=== PATIENT | female | born 1965 | race Caucasian/White ===

== ENCOUNTER 2016-09-22 03:08 | Emergency (ER) | payer OTHER ==
--- NOTE | 2016-09-22 04:05 | ED NURSING NOTES ---
Clinical Report - Nurses [facility] [address] [place] [address] 09/22/2016 3:09 Patient: JOSE ENRIQUE LINDSAY TRIAGE Triage time 0320. Acuity: LEVEL 3. Chief Complaint: SKIN LESION and TENDER AREA. --03:27 Sanju Mccormack R.N. 03:19 09/22/16. BP: 167/77. HR: 88. RR: 17. O2 saturation: 98%. Temp: 97.6 F. --03: Sanju Mccormack R.N. 03:27 09/22/16. Pain level now 0/10. --03:27 Sanju Mccormack R.N. Weight: 86.1 kg stated. Height/Length: 67 inches Per Patient. BMI: 29.8. --03:27 Sanju Mccormack R.N. Medications None. --03:22 Sanju Mccormack R.N. Allergies Codeine. Definite(nausea) Penicillins. Definite Moderate(nausea) --03:21 Sanju Mccormack R.N. History Arrived by private vehicle. Historian: patient. Accompanied by friend. Reported as located in the right axilla. Onset. (1 1/2 weeks ago). ( red indurated areas under the arm). 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 SOCIAL HX: Heavy tobacco smoker- 1 pack per day. History of drug use: heroin. (about 8 hours ago). The patient was exposed to MRSA. FALL RISK ASSESSMENT: Fall risk assessment completed. No fall risk identified. NUTRITIONAL RISK ASSESSMENT: The nutritional risk assessment revealed no deficiencies. FUNCTIONAL ASSESSMENT: Functional assessment: no impairments noted. LEARNING NEEDS ASSESSMENT: The learning needs assessment revealed no barriers. SKIN INTEGRITY ASSESSMENT: Skin integrity risk assessment completed. No skin integrity risk identified. --03:27 Sanju Mccormack R.N. PROBLEMS: Lifestyle / Substance Problems. Immunizations. LNMP - Last Normal Menstrual Period. Hepatitis. Depression. Anxiety disorder. Abscess. Tetanus Status. Cellulitis. --03:21 Sanju Mccormack R.N. ADDITIONAL SURGERIES: Bladder Suspension. . Foot. Tubal Ligation. --03:21 Sanju Mccormack R.N. Interventions ID band on patient. --03:27 Sanju Mccormack R.N. PHYSICAL ASSESSMENT GENERAL / NEURO / PSYCH: Alert. The patient does not appear to be in acute distress. Oriented X 4. HEENT: Pupils equal, round and reactive to light. Mucous membranes are pink. RESPIRATORY: Respirations not labored. Breath sounds within normal limits. CVS: Capillary refill less than 2 seconds. Pulses within normal limits. GI / : Abdomen nontender. SKIN: Skin is intact, warm, dry and non-tender. Multiple papules with erythema in the right axilla. Normal skin turgor. No skin rash. --03:28 Sanju Mccormack R.N. NURSING PROGRESS NOTES Patient gowned. Head of bed elevated. Reassurance given. Patient identifiers checked. Call light placed in reach. Bed placed in lowest position. Brakes of bed on. --03:28 Sanju Mccormack R.N. right 5th digit splinted with metal foam by lead injection mold technician. --04:26 Malorie Fleming R.N. DISPOSITION / DISCHARGE Departure time: 8. Condition at departure: unchanged. No learning barriers present. Discharge instructions provided and reviewed with the patient. Reviewed medication(s). Prescription(s) given to the patient (Bactrim DS). Patient verbalized understanding. Written instructions provided in Mexican. The patient was discharged by the physician. She was discharged home and accompanied by medicare compliance auditor. She left the Emergency Department ambulatory and via private vehicle. [employer] District Sales Manager driving. Medication list reviewed and validated with the patient. --04:27 Malorie Fleming R.N. 04:18 09/22/16. BP: deferred. HR: deferred. RR: deferred. O2 saturation: deferred. Temp: deferred. Pain level now deferred. --04:27 Malorie Fleming R.N. Locked/Released at 09/22/2016 4:28 by Malorie Fleming R.N.
--- NOTE | 2016-09-22 04:05 | ED CLINICAL REPORT ---
Clinical Report - Physicians/Mid Levels [facility] [address] [address] 09/22/2016 3:09 [id number] Time Seen: 03:17 Sep 22 2016. Arrived- By private vehicle. Historian- patient. CPT: ER phys charges level 3 (#[id number]). HISTORY OF PRESENT ILLNESS Chief Complaint: LESION. 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 It is described as painful. It has been located in the right axilla. A possible cause has been identified (shaving). Similar symptoms previously: None. Recent medical care: Not recently seen/assessed. REVIEW OF SYSTEMS No fever, chills, sore throat, cough or difficulty breathing. No hoarseness, chest pain, abdominal pain, nausea or diarrhea. No joint pain. She has had enlarged lymph nodes. PAST HISTORY Hepatitis. Depression. Anxiety disorder.. Surgeries: (Bladder Suspension. . Foot. Tubal Ligation.). Medications: None. Allergies: Codeine. Definite(nausea) Penicillins. Definite Moderate(nausea). SOCIAL HISTORY Heavy tobacco smoker (cigarette)- less than 1 pack per day. History of drug use: heroin. No alcohol use. ADDITIONAL NOTES The nursing notes have been reviewed. PHYSICAL EXAM Vital Signs: 09/22/2016 03:19 BP: 167/77. HR: 88. RR: 17. O2 saturation: 98%. Temp: 97.6 F. Appearance: Alert. No acute distress. Eyes: Conjunctivae and eyelids normal. ENT: Pharynx normal. Neck: Neck supple. CVS: Normal heart rate and rhythm. Heart sounds normal. Respiratory: No respiratory distress. Skin: Skin warm. Normal skin color. (Multiple small, tender erythematous papules in the right axilla consistent with early hidradenitis). Extremities: (Tender , swollen and ecchymotic right fifth finger at the PIP. ( pt recently bumped it but it has been chronically swollen for several months. )). Neuro: Oriented X 3. No motor deficit. No sensory deficit. LABS, X-RAYS, AND EKG Rt UE Digits X-ray: (Prior frcture at the PIP with arthritic changes.). Views: AP, lateral and oblique. Technique: good. The X-rays were independently viewed by me and interpreted contemporaneously by me. PROGRESS AND PROCEDURES Course of Care: Pt notes she injured her finger in the past and did not have it looked at. Patient/family counseled. Disposition: Discharged. Condition: stable. CLINICAL IMPRESSION Hidradenitis suppurativa (right axilla). Chronic swelling right small finger due to prior injury. INSTRUCTIONS Apply moist heat for 15-20 minutes three times a day for one weeks until better. Warnings: Further evaluation is necessary. GENERAL WARNINGS: Return or contact your physician immediately if your condition worsens or changes unexpectedly, if not improving as expected, or if other problems arise. Prescription Medications: Bactrim DS 800 mg / 160 mg: Take 1 tablet orally every 12 hours for 7 days. Dispense fourteen (14). No refills. Substitution is permissible. Understanding of the discharge instructions verbalized by patient. Follow-up with: [facility], , , [address], , [place], [address] Follow up in one week. Call for the next available appointment. (Electronically signed by Moe Fitch MD 09/24/2016 12:52)
--- NOTE | 2016-09-22 04:05 | ED NURSING NOTES ---
Clinical Report - Nurses [facility] [address] [place] [address] 09/22/2016 3:09 Patient: JOSE ENRIQUE LINDSAY TRIAGE Triage time 0320. Acuity: LEVEL 3. Chief Complaint: SKIN LESION and TENDER AREA. --03:27 Sanju Mccormack R.N. 03:19 09/22/16. BP: 167/77. HR: 88. RR: 17. O2 saturation: 98%. Temp: 97.6 F. --03: Sanju Mccormack R.N. 03:27 09/22/16. Pain level now 0/10. --03:27 Sanju Mccormack R.N. Weight: 86.1 kg stated. Height/Length: 67 inches Per Patient. BMI: 29.8. --03:27 Sanju Mccormack R.N. Medications None. --03:22 Sanju Mccormack R.N. Allergies Codeine. Definite(nausea) Penicillins. Definite Moderate(nausea) --03:21 Sanju Mccormack R.N. History Arrived by private vehicle. Historian: patient. Accompanied by friend. Reported as located in the right axilla. Onset. (1 1/2 weeks ago). ( red indurated areas under the arm). 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 SOCIAL HX: Heavy tobacco smoker- 1 pack per day. History of drug use: heroin. (about 8 hours ago). The patient was exposed to MRSA. FALL RISK ASSESSMENT: Fall risk assessment completed. No fall risk identified. NUTRITIONAL RISK ASSESSMENT: The nutritional risk assessment revealed no deficiencies. FUNCTIONAL ASSESSMENT: Functional assessment: no impairments noted. LEARNING NEEDS ASSESSMENT: The learning needs assessment revealed no barriers. SKIN INTEGRITY ASSESSMENT: Skin integrity risk assessment completed. No skin integrity risk identified. --03:27 Sanju Mccormack R.N. PROBLEMS: Lifestyle / Substance Problems. Immunizations. LNMP - Last Normal Menstrual Period. Hepatitis. Depression. Anxiety disorder. Abscess. Tetanus Status. Cellulitis. --03:21 Sanju Mccormack R.N. ADDITIONAL SURGERIES: Bladder Suspension. . Foot. Tubal Ligation. --03:21 Sanju Mccormack R.N. Interventions ID band on patient. --03:27 Sanju Mccormack R.N. PHYSICAL ASSESSMENT GENERAL / NEURO / PSYCH: Alert. The patient does not appear to be in acute distress. Oriented X 4. HEENT: Pupils equal, round and reactive to light. Mucous membranes are pink. RESPIRATORY: Respirations not labored. Breath sounds within normal limits. CVS: Capillary refill less than 2 seconds. Pulses within normal limits. GI / : Abdomen nontender. SKIN: Skin is intact, warm, dry and non-tender. Multiple papules with erythema in the right axilla. Normal skin turgor. No skin rash. --03:28 Sanju Mccormack R.N. NURSING PROGRESS NOTES Patient gowned. Head of bed elevated. Reassurance given. Patient identifiers checked. Call light placed in reach. Bed placed in lowest position. Brakes of bed on. --03:28 Sanuj Mccormack R.N. right 5th digit splinted with metal foam by installer technician. --04:26 Malorie Fleming R.N. DISPOSITION / DISCHARGE Departure time: 8. Condition at departure: unchanged. No learning barriers present. Discharge instructions provided and reviewed with the patient. Reviewed medication(s). Prescription(s) given to the patient (Bactrim DS). Patient verbalized understanding. Written instructions provided in [place]an. The patient was discharged by the physician. She was discharged home and accompanied by cardiac cath lab manager. She left the Emergency Department ambulatory and via private vehicle. Home Teaching Grades 9 Thru 12 Teacher driving. Medication list reviewed and validated with the patient. --04:27 Malorie Fleming R.N. 04:18 09/22/16. BP: deferred. HR: deferred. RR: deferred. O2 saturation: deferred. Temp: deferred. Pain level now deferred. --04:27 Malorie Fleming R.N. Locked/Released at 09/22/2016 4:28 by Malorie Fleming R.N.
--- NOTE | 2016-09-22 04:05 | ED ORDER SUMMARY ---
..... Patient: JOSE ENRIQUE LINDSAY OrderSheet [facility] VisitID: [id number] [address] [address] 51y, F Registration Date/Time: 09/22/2016 ORDER SHEET Weight: 86.1 kg (stated) Allergies: Codeine, Penicillins GENERAL ORDERS: Finger Right (5) Urgent (03:37 09/22/2016 Rommel JAIME) (Ack 3:39 LMuller) (4:03 LMuller) Splint (UE) (Right) (Metal / foam) (04:04 09/22/2016 Rommel JAIME) (4:25 HKharjit R.N.) MEDICATION ORDERS: IV FLUIDS: ORDER SHEET NOTES: [Electronically signed by Malorie Fleming R.N. (04:28 09/22/2016)] [Electronically signed by Moe Fitch MD (12:52 09/24/2016)] [Electronically locked/signed by Malorie Fleming R.N. (04:28 09/22/2016)]
--- NOTE | 2016-09-22 04:05 | ED ORDER SUMMARY ---
..... Patient: JOSE ENRIQUE LINDSAY OrderSheet [facility] VisitID: [id number] [address] [address] 51y, F Registration Date/Time: 09/22/2016 ORDER SHEET Weight: 86.1 kg (stated) Allergies: Codeine, Penicillins GENERAL ORDERS: Finger Right (5) Urgent (03:37 09/22/2016 Rommel JAIME) (Ack 3:39 LMuller) (4:03 LMuller) Splint (UE) (Right) (Metal / foam) (04:04 09/22/2016 Rommel JAIME) (4:25 HKharjit R.N.) MEDICATION ORDERS: IV FLUIDS: ORDER SHEET NOTES: [Electronically signed by Malorie Fleming R.N. (04:28 09/22/2016)] [Electronically signed by Moe Fitch MD (12:52 09/24/2016)] [Electronically locked/signed by Malorie Fleming R.N. (04:28 09/22/2016)]
--- NOTE | 2016-09-22 04:05 | ED CLINICAL REPORT ---
Clinical Report - Physicians/Mid Levels [facility] [address] [place] [address] 09/22/2016 3:09 [id number] Time Seen: 03:17 Sep 22 2016. Arrived- By private vehicle. Historian- patient. CPT: ER phys charges level 3 (#[id number]). HISTORY OF PRESENT ILLNESS Chief Complaint: LESION. 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 It is described as painful. It has been located in the right axilla. A possible cause has been identified (shaving). Similar symptoms previously: None. Recent medical care: Not recently seen/assessed. REVIEW OF SYSTEMS No fever, chills, sore throat, cough or difficulty breathing. No hoarseness, chest pain, abdominal pain, nausea or diarrhea. No joint pain. She has had enlarged lymph nodes. PAST HISTORY Hepatitis. Depression. Anxiety disorder.. Surgeries: (Bladder Suspension. . Foot. Tubal Ligation.). Medications: None. Allergies: Codeine. Definite(nausea) Penicillins. Definite Moderate(nausea). SOCIAL HISTORY Heavy tobacco smoker (cigarette)- less than 1 pack per day. History of drug use: heroin. No alcohol use. ADDITIONAL NOTES The nursing notes have been reviewed. PHYSICAL EXAM Vital Signs: 09/22/2016 03:19 BP: 167/77. HR: 88. RR: 17. O2 saturation: 98%. Temp: 97.6 F. Appearance: Alert. No acute distress. Eyes: Conjunctivae and eyelids normal. ENT: Pharynx normal. Neck: Neck supple. CVS: Normal heart rate and rhythm. Heart sounds normal. Respiratory: No respiratory distress. Skin: Skin warm. Normal skin color. (Multiple small, tender erythematous papules in the right axilla consistent with early hidradenitis). Extremities: (Tender , swollen and ecchymotic right fifth finger at the PIP. ( pt recently bumped it but it has been chronically swollen for several months. )). Neuro: Oriented X 3. No motor deficit. No sensory deficit. LABS, X-RAYS, AND EKG Rt UE Digits X-ray: (Prior frcture at the PIP with arthritic changes.). Views: AP, lateral and oblique. Technique: good. The X-rays were independently viewed by me and interpreted contemporaneously by me. PROGRESS AND PROCEDURES Course of Care: Pt notes she injured her finger in the past and did not have it looked at. Patient/family counseled. Disposition: Discharged. Condition: stable. CLINICAL IMPRESSION Hidradenitis suppurativa (right axilla). Chronic swelling right small finger due to prior injury. INSTRUCTIONS Apply moist heat for 15-20 minutes three times a day for one weeks until better. Warnings: Further evaluation is necessary. GENERAL WARNINGS: Return or contact your physician immediately if your condition worsens or changes unexpectedly, if not improving as expected, or if other problems arise. Prescription Medications: Bactrim DS 800 mg / 160 mg: Take 1 tablet orally every 12 hours for 7 days. Dispense fourteen (14). No refills. Substitution is permissible. Understanding of the discharge instructions verbalized by patient. Follow-up with: [facility], , , [address], , [place], [address] Follow up in one week. Call for the next available appointment. (Electronically signed by Moe Fitch MD 09/24/2016 12:52)
--- NOTE | 2016-09-22 07:00 | DIAGNOSTIC IMAGING REPORT ---
PROCEDURE: XR FINGER - RIGHT INDICATION: TRAUMA/INJURY, initial encounter TECHNIQUE: A P hand and two views of the right fifth digit. COMPARISON: None. FINDINGS: Soft tissue swelling around the PIP joint. No foreign body, fracture or dislocation. Moderate degenerative changes of the PIP and DIP joints. IMPRESSION: 1. Soft tissue swelling but no fracture 2. Osteoarthritic changes
--- NOTE | 2016-09-24 12:53 | ED MED RECONCILIATION SUMMARY ---
Patient: JOSE ENRIQUE LINDSAY Medication Reconciliation Report [facility] VisitID: [id number] [address] [address] 51y, F Registration Date/Time: 09/22/2016 Weight: 86.1 kg Height/Length: 67 in. BMI: 29.8 ALLERGIES: Codeine, Penicillins The patient's Home Medications are listed below: NONE. The source(s) of the original Home Medication information: Not obtained. The following Medications were given to the patient in the Emergency Department: None. The following Medications were prescribed to the patient: Bactrim DS 800 mg / 160 mg: Take 1 tablet orally every 12 hours for 7 days. Dispense fourteen (14). No refills. Substitution is permissible. -- Moe Fitch MD
--- NOTE | 2016-09-24 12:53 | ED MED RECONCILIATION SUMMARY ---
Patient: JOSE ENRIQUE LINDSAY Medication Reconciliation Report [facility] VisitID: [id number] [address] [address] 51y, F Registration Date/Time: 09/22/2016 Weight: 86.1 kg Height/Length: 67 in. BMI: 29.8 ALLERGIES: Codeine, Penicillins The patient's Home Medications are listed below: NONE. The source(s) of the original Home Medication information: Not obtained. The following Medications were given to the patient in the Emergency Department: None. The following Medications were prescribed to the patient: Bactrim DS 800 mg / 160 mg: Take 1 tablet orally every 12 hours for 7 days. Dispense fourteen (14). No refills. Substitution is permissible. -- Moe Fitch MD
--- NOTE | 2016-09-24 12:53 | ED MAR SUMMARY ---
..... Medication Administration Record [facility] [address], [place] [id number] Patient: JOSE ENRIQUE LINDSAY Visit ID: [id number] 51y, F Weight: 86.1 kg Height/Length: 67 in BMI: 29.8 ALLERGIES: Codeine, Penicillins
--- NOTE | 2016-09-24 12:53 | ED DISCHARGE INSTRUCTIONS ---
Patient: JOSE ENRIQUE LINDSAY General Instructions [facility] VisitID: [id number] [address] [place] [address] 51y, F Registration Date/Time: 09/22/2016 Hidradenitis suppurativa (right axilla). Chronic swelling right small finger due to prior injury. INSTRUCTIONS Apply moist heat for 15-20 minutes three times a day for one weeks until better. Warnings: Further evaluation is necessary. GENERAL WARNINGS: Return or contact your physician immediately if your condition worsens or changes unexpectedly, if not improving as expected, or if other problems arise. Prescription Medications: Bactrim DS 800 mg / 160 mg: Take 1 tablet orally every 12 hours for 7 days. Dispense fourteen (14). No refills. Substitution is permissible. Understanding of the discharge instructions verbalized by patient. Follow-up with: [facility], , , [address], , [place], [address] Follow up in one week. Call for the next available appointment. ADDITIONAL INFORMATION Hidradenitis Suppurativa (Abx Only) Hidradenitis suppurativa is chronic inflammation of the sweat glands. It is considered a severe form of acne. Firm, red, painful bumps called nodules form. These are filled with pus. They often enlarge and may break open and drain. Common affected areas are the armpit, groin, and anal area. You have been prescribed antibiotics and anti-inflammatory medications to help treat the flare-up. If nodules continue to enlarge, drainage may be needed. Surgical removal of the glands is the most effective treatment in severe cases. Watch for the signs of early inflammation in the future (small, tenderlumps) and follow the treatment advice below. Home care The following guidelines will help you care for your inflammation at home: If oral antibiotics were prescribed, take all of them as directed. Make a warm compress by running hot water over a facecloth. Apply it to the area until the compress cools off. Repeat over a 15-minute period. Apply the hot compress 3 times a day for the first3 days. As an alternative, wheel grinder the shower and direct the warm spray onto the area. Wash the area with antibacterial soap. Apply an [id number] antibiotic cream 3 to 4 times a day, unless another topical medication was prescribed Use ibuprofen to control pain and swelling, unless another pain medication was prescribed. If you have kidney disease or ever had a stomach ulcer or GI bleeding, talk with your doctor before using this medication. Prevention The following can help prevent hidradenitis suppurativa: Avoid heat and sweating as much as possible. Wear loose clothing. Avoid shaving the affected area. Lose excess weight. If you smoke, consider quitting. Avoiding antiperspirants and deodorants may help. Follow-up care Follow up with your health care provider if symptoms are not improving over the next five days, or as advised by our staff. When to seek medical care Get prompt medical attention if any of the following occur: Increasing redness Increasing pain Fever over 100.4F (38C) for more than 2 days aftertreatment, or as directed Nodules continue to get larger You have been given the following additional information: Hidradenitis Suppurativa, Abx (Electronically signed by Moe Fitch MD 09/24/2016 12:52)
--- NOTE | 2016-09-24 12:53 | ED MAR SUMMARY ---
..... Medication Administration Record [facility] [address], [place] [id number] Patient: JOSE ENRIQUE LINDSAY Visit ID: [id number] 51y, F Weight: 86.1 kg Height/Length: 67 in BMI: 29.8 ALLERGIES: Codeine, Penicillins
--- NOTE | 2016-09-24 12:53 | ED DISCHARGE INSTRUCTIONS ---
Patient: JOSE ENRIQUE LINDSAY General Instructions [facility] VisitID: [id number] [address] [place] [address] 51y, F Registration Date/Time: 09/22/2016 Hidradenitis suppurativa (right axilla). Chronic swelling right small finger due to prior injury. INSTRUCTIONS Apply moist heat for 15-20 minutes three times a day for one weeks until better. Warnings: Further evaluation is necessary. GENERAL WARNINGS: Return or contact your physician immediately if your condition worsens or changes unexpectedly, if not improving as expected, or if other problems arise. Prescription Medications: Bactrim DS 800 mg / 160 mg: Take 1 tablet orally every 12 hours for 7 days. Dispense fourteen (14). No refills. Substitution is permissible. Understanding of the discharge instructions verbalized by patient. Follow-up with: [facility], , , [address], , [place], [id number] Follow up in one week. Call for the next available appointment. ADDITIONAL INFORMATION Hidradenitis Suppurativa (Abx Only) Hidradenitis suppurativa is chronic inflammation of the sweat glands. It is considered a severe form of acne. Firm, red, painful bumps called nodules form. These are filled with pus. They often enlarge and may break open and drain. Common affected areas are the armpit, groin, and anal area. You have been prescribed antibiotics and anti-inflammatory medications to help treat the flare-up. If nodules continue to enlarge, drainage may be needed. Surgical removal of the glands is the most effective treatment in severe cases. Watch for the signs of early inflammation in the future (small, tenderlumps) and follow the treatment advice below. Home care The following guidelines will help you care for your inflammation at home: If oral antibiotics were prescribed, take all of them as directed. Make a warm compress by running hot water over a facecloth. Apply it to the area until the compress cools off. Repeat over a 15-minute period. Apply the hot compress 3 times a day for the first3 days. As an alternative, labor standards director the shower and direct the warm spray onto the area. Wash the area with antibacterial soap. Apply an [id number]-[id number] antibiotic cream 3 to 4 times a day, unless another topical medication was prescribed Use ibuprofen to control pain and swelling, unless another pain medication was prescribed. If you have kidney disease or ever had a stomach ulcer or GI bleeding, talk with your doctor before using this medication. Prevention The following can help prevent hidradenitis suppurativa: Avoid heat and sweating as much as possible. Wear loose clothing. Avoid shaving the affected area. Lose excess weight. If you smoke, consider quitting. Avoiding antiperspirants and deodorants may help. Follow-up care Follow up with your health care provider if symptoms are not improving over the next five days, or as advised by our staff. When to seek medical care Get prompt medical attention if any of the following occur: Increasing redness Increasing pain Fever over 100.4F (38C) for more than 2 days aftertreatment, or as directed Nodules continue to get larger You have been given the following additional information: Hidradenitis Suppurativa, Abx (Electronically signed by Moe Fitch MD 09/24/2016 12:52)
== END 2016-09-22 04:18 | disposition home or self-care (01) ==
LOC: ED SRH 03:08
DX: L73.2 Hidradenitis suppurativa (principal); M25.441 Effusion, right hand; Z88.0 Allergy status to penicillin; Z88.5 Allergy status to narcotic agent; F17.210 Nicotine dependence, cigarettes, uncomplicated